=== PATIENT | male | born 1985 | race Caucasian/White ===

== ENCOUNTER → 2019-06-02 08:13 | Outpatient (CLI) | payer SELFPAY ==
--- NOTE | 2019-06-02 08:17 | CT_ITS ---
PROCEDURE: CT HEART W CALCIUM SCORE CLINICAL HISTORY: SCREENING COMPARISON: No exams were available for comparison TECHNIQUE: Axial images obtained with sagittal and coronal reformats. All CT scans at the facility use one or more dose reduction, viz: automated exposure control, ma/kV adjustment per patient size (including targeted exams where dose is matched to indication, i.e. head), or iterative reconstruction technique. FINDINGS: The coronary artery calcium score is 0. No identifiable calcific plaque apparent with very low cardiovascular disease risk Incidental findings include small amount of gas within the esophagus which may be seen with reflux. IMPRESSION: Coronary artery calcium score of 0 indicating very low cardiovascular disease risk Dictated by: Mak White MD 06/02/2019 15:19 Electronically signed by Mak White MD in [place] 06/02/2019 15:19
== END ==
PROVIDERS: PCP Family Medicine; Referring Provider Family Medicine; Visit Provider Internal Medicine Cardiovascular Disease
DX: Z13.6 Encounter for screening for cardiovascular disorders (principal)
CPT/HCPCS: 75571

== ENCOUNTER → 2020-12-26 10:20 | Outpatient (CLI) | payer OTHER, SELFPAY ==
[2020-12-26 10:38] LABS: Basophils % 0.5 % (0.1-2.0); Eosinophils # 0.1 K/mm3 (0.0-0.4); Eosinophils % 1.3 % (0.1-12.0); Hematocrit 40.8 % (42.0-52.0); Hemoglobin 13.7 g/dL (14.1-18.0); Lymphocytes % 22.1 % (10-50); Mean Corpuscular HGB Conc 33.6 g/dL (31.8-35.4); Mean Corpuscular Hemoglobin 30.3 pg (27.0-31.2); Mean Corpuscular Volume 90.2 fl (80-94); Mean Platelet Volume 8.5 fl (7.4-10.4); Monocytes # 0.1 K/mm3 (0.1-1.0); Monocytes % 2.8 % (1.7-9.3); Neutrophils # 3.3 K/mm3 (1.8-7.8); Neutrophils % 73.4 % (37.0-80.0); Platelet Count 257 K/mm3 (142-424); Red Blood Count 4.53 M/mm3 (4.60-6.20); Red Cell Distribution Width 12.8 % (11.5-17.5); White Blood Count 4.5 K/mm3 (4.8-10.8)
== END ==
PROVIDERS: Visit Provider Family Medicine
DX: Z20.822 Contact with and (suspected) exposure to COVID-19 (principal); U07.1 COVID-19
CPT/HCPCS: 36415; 85025; U0003

== ENCOUNTER → 2021-04-11 19:04 | Outpatient (CLI) | payer OTHER, SELFPAY | PROVIDERS: Visit Provider Nurse Practitioner Family | DX: Z20.822 Contact with and (suspected) exposure to COVID-19 (principal) | CPT/HCPCS: C9803; U0003; U0005 ==

== ENCOUNTER 2023-07-07 09:53 | Emergency (ER) | payer OTHER, SELFPAY ==
[2023-07-07 10:15] VITALS: BP 144/87; PULSE 91; RESP 19; TEMP 36.6; O2SAT 98; BMI 34.0
[2023-07-07 10:26] LABS: UTC Influenza A Antigen Negative (Negative); UTC Influenza B Antigen Negative (Negative); UTC Strep Screen (Rapid) Positive (Negative)
--- NOTE | 2023-07-07 10:32 | EXP.UTC ---
Discharge Plan Disposition Patient Disposition: Home, Self-Care Condition: Good Prescriptions Prescriptions: New amoxicillin 875 mg tablet 875 mg PO Q12H Qty: 20 0RF No Action citalopram 20 mg tablet 20 mg PO DAILY Patient Comments: TAKE 1 TABLET BY MOUTH EVERY DAY ezetimibe 10 mg tablet 10 mg PO DAILY fenofibrate 54 mg tablet 54 mg PO DAILY pravastatin 20 mg tablet 20 mg PO DAILY Referrals Follow up/Referrals: Brian Carl MD [Primary Care Provider] - See instructions Activity Restrictions/Add. Instructions Additional Instructions/Restrictions: *Monitor Temp, Over the counter Motrin or Tylenol as directed/as needed Tylenol every 4 hours and Motrin every 6 hours (as long as your family doctor has told you that you can take it) for fever or pain. and straight to ER if unable to lower temp less than 101.0 after medication given *Warm salt water gargles may help to soothe the throat *Throat Lozenges? *Warm fluids like tea with honey may help to soothe the throat? *Sleep elevated *Humidifier/Vaporizer * *If you did not take Penicillin shot or was unable to, start taking antibiotic immediately and make sure that you take it for the FULL length of time although you should start to feel better in 24-48 hours *change toothbrush and toothpaste 24-48 hours after starting to take antibiotics so you do not reinfect yourself Monitor Temp. Tylenol and/or Ibuprofen as needed. ER if fever is no less than 101 despite alternating Tylenol and Ibuprofen * Encourage fluids, water, Gatorade, powerade, pedialyte if infant/toddler/or child *Cold fluids, popsicles and ice cream may feel good on his throat Follow up IMMEDIATELY for new or worsening symptoms or no Noticeable improvement over the next 48-72 hours. 911 for difficulty breathing or swallowing Clinical Impressions Clinical Impression: Strep throat Instructions Patient Instructions: Strep Throat, DI for Strep Throat Discharge ED Provider: Svitlana Cameron [facility] [place] General Stated complaint: sore throat, ZAMORA, fever Mode of Arrival: Ambulatory Source of Information: Patient Limitations: No Limitations Time Seen by Provider: 07/07/23 10:33 Description of Symptoms (Recalled from Triage Doc. by RN): PATIENT C/O SORE THROAT SINCE YESTERDAY. RECENTLY EXPOSED TO STREP HEENT Symptoms (Recalled from RN notes): Yes Resp Symptoms (Recalled from RN notes): No Skin Symptoms (Recalled from RN notes): No MS Symptoms (Recalled from RN notes): No Functional Status (Recalled from RN notes): WNL History of Present Illness Provider Complaint: Patient states that he was recently exposed to strep throat and yesterday his throat started hurting and today it was still bothering him so he came in to get checked Related Data Home Medications Medication Instructions Recorded Confirmed citalopram 20 mg tablet 20 mg PO DAILY 08/27/22 07/07/23 ezetimibe 10 mg tablet 10 mg PO DAILY 08/27/22 07/07/23 fenofibrate 54 mg tablet 54 mg PO DAILY 08/27/22 07/07/23 pravastatin 20 mg tablet 20 mg PO DAILY 08/27/22 07/07/23 Previous Rx's Medication Instructions Recorded amoxicillin 875 mg tablet 875 mg PO Q12H #20 tabs 07/07/23 Allergies Allergy/AdvReac Type Severity Reaction Status Date / Time No Known Allergies Allergy Verified 08/27/22 11:59 Worker's Comp Is this a Worker's Comp case?: No [facility] [place] Disclaimer: The information contained in this section may have been updated after the patient was seen, as this information can be updated by other users. Surgical History (Updated 08/27/22 @ 12:02 by Jyoti Fonseca LPN) H/O nasal septoplasty Family History (Updated 08/27/22 @ 12:02 by Jyoti Fonseca LPN) Father Hyperlipidemia Father Hypertension Social History (Updated 08/27/22 @ 12:03 by Jyoti Fonseca LPN) Smoking Status: Never smoker alcohol intake: current substance use type: denies use current occupational status: employed Travel in the last 8 weeks: None ROS Obtained: Yes All systems reviewed & no additional complaints except as documented and Yes Systems reviewed as appropriate & no additional complaints except as documented Constitutional Constitutional: Reports system reviewed and no additional complaints, except as documented and Reports as per HPI ENT Ears, Nose, Mouth, and Throat: Reports system reviewed and no additional complaints, except as documented, Reports as per HPI and Reports sore throat Cardiovascular Cardiovascular: Reports system reviewed and no additional complaints, except as documented and Reports as per HPI Respiratory Respiratory: Reports system reviewed and no additional complaints, except as documented and Reports as per HPI Gastrointestinal Gastrointestingal: Reports system reviewed and no additional complaints, except as documented and as per HPI Physical Exam General General appearance: alert and in no apparent distress ENT ENT exam: Present mucous membranes moist Expanded ENT Exam Throat exam: Present tonsillar erythema Respiratory Respiratory exam: Present normal lung sounds bilaterally; Absent respiratory distress or wheezes Cardiovascular Cardiovascular exam: Present regular rate, normal rhythm and normal heart sounds Abdominal Exam Abdominal exam: Present soft and normal bowel sounds; Absent distention or tenderness Neurological Exam Neurological exam: Present alert, oriented X3 and normal gait Medical Decision Making Koko Inquiry Pt receiving controlled substance: No Koko was queried for this patient: No Vital Signs: 07/07/23 10:15 Temperature 97.9 F Temperature Source Oral Pulse Rate [Left Brachial] 91 H Respiratory Rate 19 Blood Pressure [Left Arm] 144/87 H Blood Pressure Mean [Left Arm] 106 Blood Pressure Source [Left Arm] Automatic Cuff Blood Pressure Position [Left Arm] Sitting 02 Sat by Pulse Oximetry 98 Oxygen Delivery Method Room Air Lab Data Lab results reviewed: Yes I reviewed the patient's lab results. Lab Results 07/07/23 10:07: Influenza Type A Ag Negative, Influenza Type B Ag Negative, Strep Scn Rapid Clinic Positive A
[2023-07-07 10:39] VITALS: BP 144/87; PULSE 91; RESP 19; TEMP 36.6; O2SAT 98
== END 2023-07-07 10:43 | disposition home or self-care (01) ==
PROVIDERS: Emergency Provider Nurse Practitioner; PCP Family Medicine
DX: J02.0 Streptococcal pharyngitis (principal)
CPT/HCPCS: 87804; 87880; 99204; 99212; G0463

== ENCOUNTER 2024-05-06 10:07 | Outpatient (CLI) | payer OTHER, SELFPAY ==
--- NOTE | 2024-05-06 10:11 | XR_ITS ---
FINAL REPORT CLINICAL HISTORY: LUMBAGO W/ SCIATICA RT-SIDE COMPARISON: None FINDINGS: LUMBOSACRAL SPINE SERIES Five views of the lumbosacral spine were obtained. There is no fracture present. There is no malalignment. There are no significant degenerative changes. IMPRESSION: No acute process. Reviewed, Interpreted and Dictated by Sierra Worley MD Transcribed by Balbina Vasquez Authenticated and [facility]
== END 2024-05-06 23:59 | disposition home or self-care (01) ==
LOC: RAD 10:08
PROVIDERS: PCP Family Medicine; Visit Provider Family Medicine
DX: M54.41 Lumbago with sciatica, right side (principal)
CPT/HCPCS: 72110

== ENCOUNTER 2024-05-14 07:48 | Outpatient (CLI) | payer OTHER, SELFPAY ==
--- NOTE | 2024-05-14 07:50 | MR_ITS ---
FINAL REPORT CLINICAL HISTORY: RIGHT SIDE SCIATICA IN LOWER BACK with numbness and tingling COMPARISON: None FINDINGS: Multiplanar MR imaging of the lumbar spine was performed without contrast. On the sagittal T2-weighted images, there is abnormal decreased signal in the L4-5 and L5-S1 discs. The vertebrae are of normal height. The vertebral alignment is normal. L1-2: There is no significant canal stenosis or neural foraminal narrowing. L2-3: There is no significant canal stenosis or neural foraminal narrowing. L3-4: There is no significant canal stenosis or neural foraminal narrowing. L4-5: A moderate annular bulge is present with a moderate right paracentral disc protrusion, which produces moderate narrowing of the right lateral recess. There is also moderate left neural foraminal narrowing. L5-S1: A left posterolateral disc protrusion is present, that produces moderate narrowing of the left lateral recess and left neural foramen. IMPRESSION: Lower lumbar degenerative changes are present, with moderate right lateral recess narrowing at the L4-5 level, and moderate left lateral recess narrowing at the L5-S1 level. Reviewed, Interpreted and Dictated by Justo Barrett MD Transcribed by Grace Thorne Authenticated and [facility]
--- NOTE | 2024-05-14 07:57 | XR_ITS ---
FINAL REPORT CLINICAL HISTORY: PRIOR HX METAL IN RIGHT EYE FINDINGS: ORBITS Look up and look down views were obtained. No fracture is identified. The sinuses are clear. No metallic foreign body is identified. IMPRESSION: No acute process. Reviewed, Interpreted and Dictated by Justo Barrett MD Transcribed by Blabina Vasquez Authenticated and [facility]
== END 2024-05-14 23:59 | disposition home or self-care (01) ==
LOC: RAD 07:48
PROVIDERS: PCP Family Medicine; Visit Provider Family Medicine
DX: M54.41 Lumbago with sciatica, right side (principal)
CPT/HCPCS: 70200; 72148

== ENCOUNTER 2024-05-21 09:12 | Outpatient (POV) | payer OTHER, SELFPAY ==
--- NOTE | 2024-05-21 09:45 | A.OFFVIS_ITS ---
HPI Data of Consult Patient: new to practice Consult date: 05/21/24 Requesting Physician: Kaylie Mitchell APRN Primary Care Provider: Brian Carl MD Consult Narrative Reason for consult: Low back pain, right leg pain, right hip pain History of present illness: Mr. Celis is a 38 year old male who presents today as a new patient. He is a referral from Dr. Carl's office. Today he rates his pain a 4 out of 10. He does state that when the pain is increased it does go to an 8 out of 10. He describes it as a aching, throbbing sensation with pain that radiates down his right hip to the back of his knee and back of his ankle. Patient does state this has been going on for at least 3 years and progressively worsened. He does believe a lot of it is more related to wear and tear as he is a [employer] and works daily. He states the pain does seem worse when he is in prolonged positions and he does typically have to move [id number]. He does feel like due to the chronic pain there along his right side that he is favoring his other side and may cause additional issues they are. Patient has tried oral medications along with ibuprofen, steroids, muscle relaxers and Flexeril, heat and ice and topicals with minimal relief. Patient denies any prior surgical or injection history. Patient is interested in any help we may build to provide as it is interfering with his ability perform activities of daily living such as cooking and cleaning. Patient does state that he has no history of heart or kidney related issues.Patient is not on any scheduled medications. His Koko has been reviewed and is appropriate. CC: Kaylie Mitchell APRN [facility] Disclaimer: The information contained in this section may have been updated after the patient was seen, as this information can be updated by other users. Surgical History (Updated 08/27/22 @ 12:02 by Jyoti Fonseca LPN) H/O nasal septoplasty Family History (Updated 08/27/22 @ 12:02 by Jyoti Fonseca LPN) Father Hyperlipidemia Father Hypertension Social History (Updated 08/27/22 @ 12:03 by Jyoti Fonseca LPN) Smoking Status: Never smoker alcohol intake: current alcohol intake frequency: a few times a week substance use type: denies use current occupational status: employed Travel in the last 8 weeks: None Have you lived/traveled outside [place] in past 30 days?: No Contact w/someone who lives/traveled outside US past 30 days?: No Exposure to someone with infectious disease in past 14 days?: No Do you have a fever (greater than 100.4 F or 38 C)?: No Have you tested positive for COVID-19: No Exposed to someone with COVID-19 in past 14 days?: No Do you have a sore throat?: No Do you have a cough?: No Do you have any weakness?: No Do you have any diarrhea?: No Are you experiencing any unusual bleeding?: No Do you have any muscle aches/pain?: No Do you have any abdominal pain?: No Are you experiencing loss of taste or smell?: No Review of Systems Review of Systems Review of systems:: pertinent systems reviewed and negative unless documented below Review of systems (narrative): Review of Systems: General: No recent weight changes, no fever, no sleep disturbances Respiratory: No cough, no shortness of air, no recurring pulmonary infections Cardiovascular/peripheral vascular: No chest pain, no palpitations, no edema, no shortness of breath Gastrointestinal: No new onset incontinence, normal bowel movements reported Genitourinary: No new onset incontinence Musculoskeletal: Low back pain, right hip pain, right leg pain Psychiatric: [Normal mood/affect] Neurological: [Denies weakness in extremities], [denies balance issues] Meds Home Medications and Allergies Home Medications ?Medication ?Instructions ?Recorded ?Confirmed ?Type citalopram 20 mg tablet 20 mg PO DAILY 08/27/22 07/07/23 History ezetimibe 10 mg tablet 10 mg PO DAILY 08/27/22 07/07/23 History fenofibrate 54 mg tablet 54 mg PO DAILY 08/27/22 07/07/23 History pravastatin 20 mg tablet 20 mg PO DAILY 08/27/22 07/07/23 History amoxicillin 875 mg tablet 875 mg PO Q12H #20 tabs 07/07/23 Rx New Prescriptions to Start Prescriptions: Allergies Allergy/AdvReac Type Severity Reaction Status Date / Time No Known Allergies Allergy Verified 08/27/22 11:59 Objective Narrative: Physical Exam: General: Alert and oriented x3, no acute distress, pleasant and cooperative Lungs: Respirations even and unlabored, symmetrical chest expansion Eyes: PERRL Musculoskeletal: Flexion and extension of lumbar [spine] somewhat guarded secondary to pain, positive Abhishek's along the right side however minimal point tenderness on right SI Neurological: Speech clear, no gross sensory deficit Additional findings Additional findings: FINDINGS: Multiplanar MR imaging of the lumbar spine was performed without contrast. On the sagittal T2-weighted images, there is abnormal decreased signal in the L4-5 and L5-S1 discs. The vertebrae are of normal height. The vertebral alignment is normal. L1-2: There is no significant canal stenosis or neural foraminal narrowing. L2-3: There is no significant canal stenosis or neural foraminal narrowing. L3-4: There is no significant canal stenosis or neural foraminal narrowing. L4-5: A moderate annular bulge is present with a moderate right paracentral disc protrusion, which produces moderate narrowing of the right lateral recess. There is also moderate left neural foraminal narrowing. L5-S1: A left posterolateral disc protrusion is present, that produces moderate narrowing of the left lateral recess and left neural foramen. IMPRESSION: Lower lumbar degenerative changes are present, with moderate right lateral recess narrowing at the L4-5 level, and moderate left lateral recess narrowing at the L5-S1 level. Reviewed, Interpreted and Dictated by Justo Barrett MD Transcribed by Grace Thorne Authenticated and [facility] Assessment and Plan *Assessment and plan (1) Degenerative disc disease: Status: Acute Category: Medical (2) Lumbar radiculopathy: Status: Acute Category: Medical Code(s): M54.16 - Radiculopathy, lumbar region (3) Sacroiliitis: Status: Acute Category: Medical Code(s): M46.1 - Sacroiliitis, not elsewhere classified Plan Patient is experiencing worsening pain in his low back with numbness and tingling into his lower right extremity. Patient did have limited range of motion of her lumbar spine with a positive leg raise. I did discuss with patient that I do believe they would benefit from a lumbar epidural steroid injection. Risk and benefits were discussed with patient and the patient would like to proceed forward with this plan of care. Patient is not on any blood thinners. Patient has tried and failed conservative therapy including continued at home stretching exercise for longer than 12 weeks between injections with the pain going on for approximately 3 years. I will order the patient on compounded cream and also send in a new muscle relaxer with a 2-week supply. We will schedule the patient for an LESI L4-L5 under fluoroscopy. Patient has been instructed to contact the clinic with any concerns before the next appointment. Dr. Jc has reviewed this note and agrees with this plan of care. This note was dictated using voice recognition software and make contain errors or omissions. All injections are used with Lidocaine, Bupivacaine and Depo Medrol. Occasionally urine drug screen is needed to verify patient's compliance with our office pain contract. This is ordered based off specific treatments related to chronic pain with the potential to abuse certain medications.
[2024-05-21 10:36] VITALS: BP 145/96; PULSE 82; RESP 18; O2SAT 99; BMI 32.5
== END 2024-05-21 23:59 | disposition home or self-care (01) ==
PROVIDERS: PCP Family Medicine; Visit Provider Nurse Practitioner Family
DX: M51.16 Intervertebral disc disorders with radiculopathy, lumbar region (principal); M46.1 Sacroiliitis, not elsewhere classified; Z73.89 Other problems related to life management difficulty
CPT/HCPCS: 99202; G0463

== ENCOUNTER 2024-05-26 08:48 | Day surgery (SDC) | payer OTHER, SELFPAY ==
[2024-05-26 09:54] VITALS: BP 141/104; PULSE 67; RESP 16; TEMP 37; O2SAT 98; BMI 32.5
[2024-05-26 10:09] VITALS: BP 145/93; PULSE 71; RESP 16; O2SAT 100
[2024-05-26 10:10] VITALS: BP 131/92; PULSE 69; RESP 18; O2SAT 97
[2024-05-26] MEDS: methylPREDNISolone ACETATE 80MG/ML VIAL 80 MG (10:10)
[2024-05-26 10:13] VITALS: BP 131/92; PULSE 69; RESP 18; O2SAT 97
--- NOTE | 2024-05-26 10:23 | EXP.PAIN.PRO ---
Procedure Date: 05/26/24 Time: 10:00 Anesthesiologist:: Miguel David CRNA Complications:: None Pre-procedure Diagnosis:: Degenerative disc lumbar spine. lumbar radiculopathy. Post-procedure Diagnosis:: Same. Indications for Procedure:: Patient very pleasant 38-year-old male who comes our clinic today for lumbar epidural steroid injection at L4-5 level. Patient describes low lumbar back pain as constant, dull, aching. Patient also reports bilateral hip and leg radicular symptoms at times. He rates his pain 7/10. Procedure Details:: Procedure: Lumbar epidural steroid injection under fluoroscopy Informed consent was obtained and the risks and benefits of the procedure were explained to the patient. The patient was taken to the procedure room and noninvasive monitors placed, including noninvasive blood pressure cuff and pulse oximeter. The back was viewed using C-arm Fluoroscopy and prepped using Chloraprep as a cleansing solution and the L4-L5 interspace was palpated. Skin and subcutaneous tissues were anesthetized using lidocaine 1.5% and a 25-gauge needle. After this, an 18-gauge Touhy epidural needle was placed into the L4-L5 interspace and advanced using fluoroscopic guidance and loss of resistance to air until the epidural space was encountered. After confirmation of needle placement in the epidural space, with dye, a solution containing normal saline, 3 mL and Depo-Medrol 80 mg were incrementally injected into the lumbar epidural space. The patient tolerated the procedure well with no complications. The patient was observed in the Pain Clinic and then discharged home neurologically intact. Plan and Disposition:: Patient was discharged without incident.
== END 2024-05-26 10:09 | disposition home or self-care (01) ==
LOC: SC.PAINP 08:49
PROVIDERS: PCP Family Medicine; Visit Provider Nurse Anesthetist, Certified Registered
DX: M51.16 Intervertebral disc disorders with radiculopathy, lumbar region (principal)
CPT/HCPCS: 62323; J1010

== ENCOUNTER 2024-06-08 14:31 | Outpatient (POV) | payer OTHER, SELFPAY ==
--- NOTE | 2024-06-08 14:45 | A.OFFVIS_ITS ---
[facility] Disclaimer: The information contained in this section may have been updated after the patient was seen, as this information can be updated by other users. Medical History HLD (hyperlipidemia) Surgical History H/O nasal septoplasty Family History Father Hyperlipidemia Father Hypertension Social History Smoking Status: Never smoker alcohol intake: current alcohol intake frequency: a few times a week substance use type: denies use current occupational status: employed Travel in the last 8 weeks: None PM Subjective & Objective Subjective Subjective:: Patient is a pleasant 38-year-old male who presents today for follow-up of lumbar epidural steroid injection L4-L5 on 05/26/2024. Today he rates his pain a 0 out of 10. Patient denies any new trauma or injury. He does state that it did take about 4 to 5 days for it to officially kick in however has provided 90 to 95% improvement and is still working. Patient states he has been able to do more with decreased pain overall. He does state that he has noticed more tingling sensation in his feet that is present when he has been standing for prolonged periods. He does state that this past weekend had improved from the prior weekend though and then it does not seem as bad. Patient denies any prior diabetes history. Patient does also state he did get the compounded cream and it did help. Patient was also sent in from the last visit baclofen 10 mg 3 times daily as needed. His Koko has been reviewed and is appropriate. Review of Systems: General: No recent weight changes, no fever, no sleep disturbances Respiratory: No cough, no shortness of air, no recurring pulmonary infections Cardiovascular/peripheral vascular: No chest pain, no palpitations, no edema, no shortness of breath Gastrointestinal: No new onset incontinence, normal bowel movements reported Genitourinary: No new onset incontinence Musculoskeletal: Low back pain Psychiatric: [Normal mood/affect] Neurological: [Denies weakness in extremities], [denies balance issues] Pain at rest (0-10 scale): 0 Objective Objective:: Physical Exam: General: Alert and oriented x3, no acute distress, pleasant and cooperative Lungs: Respirations even and unlabored, symmetrical chest expansion Eyes: PERRL Musculoskeletal: Flexion and extension of lumbar spine within normal limits Neurological: Speech clear, no gross sensory deficit Has patient had previous pain injection?: Yes Percent improvement in pain since last injection: 90 to 95% Conservative treatment options previously tried: Home exercise plan Length of treatment: Longer than 12 weeks Meds Home Medications and Allergies Home Medications ?Medication ?Instructions ?Recorded ?Confirmed ?Type citalopram 20 mg tablet 20 mg PO DAILY 08/27/22 05/26/24 History ezetimibe 10 mg tablet 10 mg PO DAILY 08/27/22 05/26/24 History fenofibrate 54 mg tablet 54 mg PO DAILY 08/27/22 05/26/24 History pravastatin 20 mg tablet 20 mg PO DAILY 08/27/22 05/26/24 History baclofen 10 mg tablet 10 mg PO TID #42 tabs 05/21/24 05/26/24 Rx New Prescriptions to Start Prescriptions: Allergies Allergy/AdvReac Type Severity Reaction Status Date / Time No Known Allergies Allergy Verified 08/27/22 11:59 Assessment and Plan *Assessment and plan (1) Lumbar radiculopathy: Status: Acute Category: Medical Code(s): M54.16 - Radiculopathy, lumbar region (2) Degenerative disc disease: Status: Acute Category: Medical Plan Patient has had significant improvement and does not require any additional injection therapy at this time. Patient will return to clinic in 6 weeks for reevaluation of symptoms and plan of care. Patient has been instructed to contact the clinic with any concerns before the next appointment. Dr. Jc has reviewed this note and agrees with this plan of care. This note was dictated using voice recognition software and make contain errors or omissions. All injections are used with Lidocaine, Bupivacaine and Depo Medrol. Occasionally urine drug screen is needed to verify patient's compliance with our office pain contract. This is ordered based off specific treatments related to chronic pain with the potential to abuse certain medications.
[2024-06-08 15:15] VITALS: BP 146/92; PULSE 94; RESP 18; O2SAT 95; BMI 32.5
== END 2024-06-08 23:59 | disposition home or self-care (01) ==
LOC: SC.PAIN 14:32
PROVIDERS: PCP Family Medicine; Visit Provider Nurse Practitioner Family
DX: M51.16 Intervertebral disc disorders with radiculopathy, lumbar region (principal)
CPT/HCPCS: 99212; G0463

== ENCOUNTER 2024-06-24 09:46 | Outpatient (POV) | payer OTHER, SELFPAY ==
[2024-06-24 09:54] VITALS: BP 139/91; BP 149/101; PULSE 89; RESP 16; O2SAT 98; BMI 32.5
--- NOTE | 2024-06-24 10:13 | EXP.PAIN.SOA ---
[facility] Disclaimer: The information contained in this section may have been updated after the patient was seen, as this information can be updated by other users. Medical History (Updated 06/24/24 @ 10:16 by Kaylie Mitchell APRN) HLD (hyperlipidemia) Surgical History H/O nasal septoplasty Family History Father Hyperlipidemia Father Hypertension Social History Smoking Status: Never smoker alcohol intake: current alcohol intake frequency: a few times a week substance use type: denies use current occupational status: other Travel in the last 8 weeks: None PM Subjective & Objective Subjective Subjective:: Patient is a pleasant 38-year-old male who presents today for worsening low back pain. He states that just as Saturday and Saturday he started having worsening pain in his low back/buttocks area. He states that it is worse when he goes to bend or stretch his foot. He states he has a lot of pain right they are at his tailbone. He states that he can work through it however when he is resting he just feels a lot of pressure and tightness and frequently has to lean to 1 side in order to improve the pain. He denies any new injury or trauma. Patient has been tried on Flexeril in the past from an outside provider and did not feel like it did anything. At her last visit we did send in some baclofen initially but he states he did not try that medication. His Koko has been reviewed and is appropriate. Review of Systems: General: No recent weight changes, no fever, no sleep disturbances Respiratory: No cough, no shortness of air, no recurring pulmonary infections Cardiovascular/peripheral vascular: No chest pain, no palpitations, no edema, no shortness of breath Gastrointestinal: No new onset incontinence, normal bowel movements reported Genitourinary: No new onset incontinence Musculoskeletal: Low back pain/buttocks pain Psychiatric: [Normal mood/affect] Neurological: [Denies weakness in extremities], [denies balance issues] Pain at rest (0-10 scale): 8 Objective Objective:: Physical Exam: General: Alert and oriented x3, no acute distress, pleasant and cooperative Lungs: Respirations even and unlabored, symmetrical chest expansion Eyes: PERRL Musculoskeletal: Flexion and extension of lumbar [spine] somewhat guarded secondary to pain, [antalgic gait noted] negative FABERs and negative point tenderness along his SI joints, tenderness around his lower sacrum/coccyx Neurological: Speech clear, no gross sensory deficit Has patient had previous pain injection?: No Conservative treatment options previously tried: Home exercise plan Length of treatment: Longer than 12 weeks Meds Home Medications and Allergies Home Medications ?Medication ?Instructions ?Recorded ?Confirmed ?Type citalopram 20 mg tablet 20 mg PO DAILY 08/27/22 06/24/24 History ezetimibe 10 mg tablet 10 mg PO DAILY 08/27/22 06/24/24 History fenofibrate 54 mg tablet 54 mg PO DAILY 08/27/22 06/24/24 History pravastatin 20 mg tablet 20 mg PO DAILY 08/27/22 06/24/24 History baclofen 10 mg tablet 10 mg PO TID #42 tabs 05/21/24 06/24/24 Rx methocarbamol 750 mg tablet 750 mg PO TID #42 tabs 06/24/24 Rx New Prescriptions to Start Prescriptions: methocarbamol Kaylie Mitchell Allergies Allergy/AdvReac Type Severity Reaction Status Date / Time No Known Allergies Allergy Verified 08/27/22 11:59 Assessment and Plan *Assessment and plan (1) Acute buttock pain: Status: Acute Category: Medical Code(s): M79.18 - Myalgia, other site Plan I did discuss with the patient since this is very new that I would not recommend injection therapy at this time. I have counseled him to continue to use his compounded cream and that we will send in a 2-week dose of methocarbamol 750 mg 3 times daily as needed. Patient was previously sent in baclofen initially when we first saw the patient and after additional phone calls for clarification he states that he had not tried this 1 as well. I did membership counselor him that he can try the medication of both the methocarbamol and the baclofen however not to take these at the same time and he can call us back and let us know if 1 helps progressively better than another. We will follow-up with him in 2 weeks. I did recommend he try heat and ice as well as possible massage. We did discuss in future that it might be beneficial to also try some physical therapy if the pain continues. We will follow-up with him in 2 weeks. Patient has been instructed to contact the clinic with any concerns before the next appointment. Dr. Jc has reviewed this note and agrees with this plan of care. This note was dictated using voice recognition software and make contain errors or omissions. All injections are used with Lidocaine, Bupivacaine and Depo Medrol. Occasionally urine drug screen is needed to verify patient's compliance with our office pain contract. This is ordered based off specific treatments related to chronic pain with the potential to abuse certain medications.
== END 2024-06-24 23:59 | disposition home or self-care (01) ==
PROVIDERS: PCP Family Medicine; Visit Provider Nurse Practitioner Family
DX: M79.18 Myalgia, other site (principal)
CPT/HCPCS: 99212; G0463

== ENCOUNTER 2024-07-08 09:44 | Outpatient (POV) | payer OTHER, SELFPAY ==
--- NOTE | 2024-07-08 09:59 | A.OFFVIS_ITS ---
[facility] Disclaimer: The information contained in this section may have been updated after the patient was seen, as this information can be updated by other users. Medical History (Updated 06/24/24 @ 10:16 by Kaylie Mitchell APRN) HLD (hyperlipidemia) Surgical History H/O nasal septoplasty Family History Father Hyperlipidemia Father Hypertension Social History Smoking Status: Never smoker alcohol intake: current alcohol intake frequency: a few times a week substance use type: denies use current occupational status: other Travel in the last 8 weeks: None PM Subjective & Objective Subjective Subjective:: Patient is a pleasant 38-year-old male who presents today for 2-week follow-up. Patient was experiencing worsening pain in and around his tailbone at our last visit that was new and it only been going on for few days. Patient was given methocarbamol 750 mg 3 times a day, he states this did help. He states that the pain is more manageable about forward. He states he will still have some pain in and around his low back and hip along the right side and will occasionally have numbness into his foot on that side. Patient denies any new falls or injuries. He does state that in the mornings it does seem like that is when his pain is worse and just harder to get up and get going. He states it will ease off as he has moved around more. He states he has also started doing physician guided exercises and stretching at home and that does seem to help additionally. His Koko has been reviewed and is appropriate. Review of Systems: General: No recent weight changes, no fever, no sleep disturbances Respiratory: No cough, no shortness of air, no recurring pulmonary infections Cardiovascular/peripheral vascular: No chest pain, no palpitations, no edema, no shortness of breath Gastrointestinal: No new onset incontinence, normal bowel movements reported Genitourinary: No new onset incontinence Musculoskeletal: Low back pain, right hip Psychiatric: [Normal mood/affect] Neurological: [Denies weakness in extremities], [denies balance issues] Pain at rest (0-10 scale): 3 Objective Objective:: Physical Exam: General: Alert and oriented x3, no acute distress, pleasant and cooperative Lungs: Respirations even and unlabored, symmetrical chest expansion Eyes: PERRL Musculoskeletal: Flexion and extension of lumbar [spine] somewhat guarded secondary to pain Neurological: Speech clear, no gross sensory deficit Has patient had previous pain injection?: No Conservative treatment options previously tried: Home exercise plan Length of treatment: Longer than 12-week Meds Home Medications and Allergies Home Medications ?Medication ?Instructions ?Recorded ?Confirmed ?Type citalopram 20 mg tablet 20 mg PO DAILY 08/27/22 06/24/24 History ezetimibe 10 mg tablet 10 mg PO DAILY 08/27/22 06/24/24 History fenofibrate 54 mg tablet 54 mg PO DAILY 08/27/22 06/24/24 History pravastatin 20 mg tablet 20 mg PO DAILY 08/27/22 06/24/24 History baclofen 10 mg tablet 10 mg PO TID #42 tabs 05/21/24 06/24/24 Rx diclofenac sodium 75 mg 75 mg PO BID #28 tabs 07/08/24 Rx tablet,delayed release methocarbamol 750 mg tablet 750 mg PO TID #90 tabs 07/08/24 Rx New Prescriptions to Start Prescriptions: diclofenac sodium Mitchell,Kaylie A methocarbamol Mitchell,Kaylie A Allergies Allergy/AdvReac Type Severity Reaction Status Date / Time No Known Allergies Allergy Verified 08/27/22 11:59 Assessment and Plan *Assessment and plan (1) Lumbar radiculopathy: Status: Acute Category: Medical Code(s): M54.16 - Radiculopathy, lumbar region (2) Degenerative disc disease: Status: Acute Category: Medical (3) Sacroiliitis: Status: Acute Category: Medical Code(s): M46.1 - Sacroiliitis, not elsewhere classified Plan I will refill the patient's methocarbamol and provide a 2-month supply of this medication. I will also add diclofenac 75 mg twice a day with a 2-week supply. Patient was counseled to discontinue all other NSAIDs while tolerating this medication and to take it with food to minimize GI upset. Patient agrees with this plan of care. Patient denied any heart or kidney issues. Patient will return to clinic in 2 months. He was counseled to call our office and let us know if the diclofenac helps and we will get him refills to his follow-up date. Patient has been instructed to contact the clinic with any concerns before the next appointment. Dr. Jc has reviewed this note and agrees with this plan of care. This note was dictated using voice recognition software and make contain errors or omissions. All injections are used with Lidocaine, Bupivacaine and Depo Medrol. Occasionally urine drug screen is needed to verify patient's compliance with our office pain contract. This is ordered based off specific treatments related to chronic pain with the potential to abuse certain medications.
[2024-07-08 11:17] VITALS: BP 135/88; PULSE 70; RESP 14; O2SAT 98; BMI 31.7
== END 2024-07-08 23:59 | disposition home or self-care (01) ==
PROVIDERS: PCP Family Medicine; Visit Provider Nurse Practitioner Family
DX: M46.1 Sacroiliitis, not elsewhere classified (principal); M51.16 Intervertebral disc disorders with radiculopathy, lumbar region
CPT/HCPCS: 99212; G0463

== ENCOUNTER 2024-07-20 09:34 | Outpatient (POV) | payer OTHER, SELFPAY ==
[2024-07-20 09:40] VITALS: BP 138/80; PULSE 63; RESP 16; O2SAT 96; BMI 32.5
--- NOTE | 2024-07-20 10:21 | A.OFFVIS_ITS ---
[facility] Disclaimer: The information contained in this section may have been updated after the patient was seen, as this information can be updated by other users. Medical History HLD (hyperlipidemia) Surgical History H/O nasal septoplasty Family History Father Hyperlipidemia Father Hypertension Social History Smoking Status: Never smoker alcohol intake: current alcohol intake frequency: a few times a week substance use type: denies use current occupational status: other Travel in the last 8 weeks: None PM Subjective & Objective Subjective Subjective:: Patient is a pleasant 38-year-old male who presents today for 6-week follow-up. Today he rates his pain at a 3 out of 10. He denies any new changes or falls. He does state that the diclofenac that we sent in at his last visit did significantly help. He denies any side effects from this medication. Patient is currently managed with diclofenac 75 mg twice a day, methocarbamol 750 mg 3 times a day and compounded cream. He does state overall he still has some of t he numbness in his foot however currently the pain is still manageable. Patient did previously have a epidural in the past that did provide significant relief. His Koko has been reviewed and is appropriate. Review of Systems: General: No recent weight changes, no fever, no sleep disturbances Respiratory: No cough, no shortness of air, no recurring pulmonary infections Cardiovascular/peripheral vascular: No chest pain, no palpitations, no edema, no shortness of breath Gastrointestinal: No new onset incontinence, normal bowel movements reported Genitourinary: No new onset incontinence Musculoskeletal: Low back pain Psychiatric: [Normal mood/affect] Neurological: [Denies weakness in extremities], [denies balance issues] Pain at rest (0-10 scale): 3 Objective Objective:: Physical Exam: General: Alert and oriented x3, no acute distress, pleasant and cooperative Lungs: Respirations even and unlabored, symmetrical chest expansion Eyes: PERRL Musculoskeletal: Flexion and extension of lumbar [spine] somewhat guarded secondary to pain Neurological: Speech clear, no gross sensory deficit Has patient had previous pain injection?: No Conservative treatment options previously tried: Home exercise plan Length of treatment: Longer than 12 weeks Meds Home Medications and Allergies Home Medications ?Medication ?Instructions ?Recorded ?Confirmed ?Type citalopram 20 mg tablet 20 mg PO DAILY 08/27/22 07/20/24 History ezetimibe 10 mg tablet 10 mg PO DAILY 08/27/22 07/20/24 History fenofibrate 54 mg tablet 54 mg PO DAILY 08/27/22 07/20/24 History pravastatin 20 mg tablet 20 mg PO DAILY 08/27/22 07/20/24 History baclofen 10 mg tablet 10 mg PO TID #42 tabs 05/21/24 07/20/24 Rx diclofenac sodium 75 mg 75 mg PO BID #28 tabs 07/08/24 07/20/24 Rx tablet,delayed release methocarbamol 750 mg tablet 750 mg PO TID #90 tabs 07/08/24 07/20/24 Rx New Prescriptions to Start Prescriptions: Allergies Allergy/AdvReac Type Severity Reaction Status Date / Time No Known Allergies Allergy Verified 08/27/22 11:59 Assessment and Plan *Assessment and plan (1) Degenerative disc disease: Status: Acute Category: Medical (2) Degenerative disc disease, lumbar: Status: Acute Category: Medical Code(s): M51.369 - Other intervertebral disc degeneration, lumbar region without mention of lumbar back pain or lower extremity pain (3) Lumbar radiculopathy: Status: Acute Category: Medical Code(s): M54.16 - Radiculopathy, lumbar region Plan Patient is doing well currently with his current medication regimen. I will send in a 3-month supply of the diclofenac. Patient states he only does the muscle relaxer as needed and does not need refills. Patient will return to clinic in 3 months. Patient has been instructed to contact the clinic with any concerns before the next appointment. Dr. Jc has reviewed this note and agrees with this plan of care. This note was dictated using voice recognition software and make contain errors or omissions. All injections are used with Lidocaine, Bupivacaine and Depo Medrol. Occasionally urine drug screen is needed to verify patient's compliance with our office pain contract. This is ordered based off specific treatments related to chronic pain with the potential to abuse certain medications.
== END 2024-07-20 23:59 | disposition home or self-care (01) ==
PROVIDERS: PCP Family Medicine; Visit Provider Nurse Practitioner Family
DX: M51.16 Intervertebral disc disorders with radiculopathy, lumbar region (principal)
CPT/HCPCS: 99212; G0463